=== PATIENT | female | born 1975 | race Hispanic/Latino ===

== ENCOUNTER 2020-08-05 13:11 | Emergency (ER) | payer MEDICAID ==
--- NOTE | 2020-08-05 13:43 | Emergency Department Report ---
Blank Doc - Documentation Documentation: 45-year-old female that presents with left leg pain and swelling. This initial assessment/diagnostic orders/clinical plan/treatment(s) is/are subject to change based on patient's health status, clinical progression and re- assessment by fellow clinical providers in the ED. Further treatment and workup at subsequent clinical providers discretion. Patient/guardians urged not to elope from the ED as their condition may be serious if not clinically assessed and managed. Initial orders include: 1- Patient sent to [facility] for further evaluation and treatment 2- doppler US
[2020-08-05 13:49] VITALS: BP 132/70
--- NOTE | 2020-08-05 15:23 | Vascular Lab Report ---
DUPLEX DOPPLER LOWER EXTREMITY VEINS, LEFT INDICATION / CLINICAL INFORMATION: Left leg pain and swelling. TECHNIQUE: Duplex doppler imaging was performed through the veins of the left lower extremity using venous compr ession and other maneuvers. COMPARISON: None available. FINDINGS: LEFT COMMON FEMORAL VEIN: Negative. LEFT FEMORAL VEIN: Negative. LEFT POPLITEAL VEIN: Negative. LEFT CALF VEINS: Negative. ADDITIONAL FINDINGS: None. IMPRESSION: 1. No sonographic evidence for DVT in the left lower extremity. Signer Name: Jer Morley MD Signed: 08/05/2020 3:19 PM Workstation Name: [id number]
--- NOTE | 2020-08-05 16:32 | Emergency Department Report ---
ED General Adult HPI - General Chief complaint: Extremity Injury, Lower Stated complaint: LOW LEGG SWELLING Time Seen by Provider: 08/05/20 13:42 Source: patient Mode of arrival: Ambulatory Limitations: No Limitations - History of Present Illness Initial comments: Patient is 45 years old female with history of recent left hip replacement. Patient brought to the emergency room from [facility] for evaluation of left leg swelling for the last few days. Patient stated that she has been standing a lot on her feet and usually when she was at home she elevated her feet up but she is unable to do it at [place]. Patient denied any chest pain or shortness of breath. No fever or chills. Patient also denied any recent injury. Severity scale (0 -10): 8 - Related Data Allergies Allergy/AdvReac Type Severity Reaction Status Date / Time No Known Allergies Allergy Unverified 08/05/20 13:44 ED Review of Systems ROS: Stated complaint: LOW LEGG SWELLING Other details as noted in HPI Comment: All other systems reviewed and negative Constitutional: denies: chills, fever Respiratory: denies: cough, shortness of breath Cardiovascular: denies: chest pain Gastrointestinal: denies: abdominal pain, nausea, vomiting Musculoskeletal: denies: back pain Neurological: denies: headache, weakness, numbness, paresthesias, confusion ED Past Medical Hx - Past Medical History Hx of Cancer: Yes (BREAST) - Surgical History Additional Surgical History: LEFT HIP REPLACEMENT/ PARTIAL HYSTO/ LUMPECTOMY ED Physical Exam - General Limitations: No Limitations General appearance: alert, in no apparent distress - Head Head exam: Present: atraumatic, normocephalic, normal inspection - Eye Eye exam: Present: normal appearance - ENT ENT exam: Present: normal exam, normal orophraynx, mucous membranes moist - Neck Neck exam: Present: normal inspection, full ROM. Absent: tenderness, meningismus - Respiratory Respiratory exam: Present: normal lung sounds bilaterally - Cardiovascular Cardiovascular Exam: Present: regular rate, normal rhythm, normal heart sounds - GI/Abdominal GI/Abdominal exam: Present: soft, normal bowel sounds. Absent: distended, tenderness, guarding, rebound, rigid, organomegaly, mass, bruit, pulsatile mass, hernia - Extremities Exam Extremities exam: Present: normal inspection, full ROM, normal capillary refill, pedal edema. Absent: tenderness, calf tenderness - Back Exam Back exam: Present: normal inspection, full ROM. Absent: CVA tenderness (R) - Neurological Exam Neurological exam: Present: alert, oriented X3, CN II-XII intact, normal gait, reflexes normal. Absent: motor sensory deficit - Psychiatric Psychiatric exam: Present: normal mood - Skin Skin exam: Present: warm, intact, normal color ED Course Vital Signs 08/05/20 13:47 Temperature 99.3 F Pulse Rate 112 H Respiratory 18 Rate Blood Pressure 132/70 [Left] O2 Sat by Pulse 97 Oximetry ED Medical Decision Making - Radiology Data Radiology results: report reviewed - Medical Decision Making Patient is 45 years old female with history of recent left hip replacement. Patient brought to the emergency room from [facility] for evaluation of left leg swelling for the last few days. Patient stated that she has been standing a lot on her feet and usually when she was at home she elevated her feet up but she is unable to do it at [place]. Patient denied any chest pain or shortness of breath. No fever or chills. Patient also denied any recent injury. Left lower extremity Doppler ultrasound is negative for DVT. Patient advised to elevate her leg and given prescription for Naprosyn and 5-day course of Lasix 20 mg and advised to follow-up with her primary doctor in the next 2 to 3 days and to return to the ER if she develop any new symptoms. Critical care attestation.: If time is entered above; I have spent that time in minutes in the direct care of this critically ill patient, excluding procedure time. ED Disposition Clinical Impression: Left leg swelling Disposition: - TO HOME OR SELFCARE Is pt being admited?: No Condition: Stable Instructions: Leg Edema (ED) Referrals: KASH MARTIN MD [Primary Care Provider] - 3-5 Days
== END 2020-08-05 16:45 | disposition home or self-care (01) ==
LOC: ED 13:11
DX: M79.89 Other specified soft tissue disorders (principal); Z85.3 Personal history of malignant neoplasm of breast; Z98.890 Other specified postprocedural states